=== PATIENT | male | born 1955 | race Caucasian/White ===

== ENCOUNTER → 2017-06-18 | Outpatient (CLI) | payer MEDICAID, MEDICARE ==
--- NOTE | 2017-06-18 12:20 | XR ---
EXAMINATION TYPE: XR finger RT DATE OF EXAM: 06/18/2017 COMPARISON: Bilateral hand x-ray February 23, 2015 HISTORY: Thumb pain and swelling. Injury 6-8 months ago. TECHNIQUE: 2 views of right thumb are obtained. FINDINGS: There is spurring and disc space narrowing at first metacarpophalangeal and first interphal angeal joint redemonstrated. On current study there is new 2 mm well-corticated ossific fragment, fr om the dorsal aspect of the first distal phalanx felt to reflect avulsion type fracture probably rela dash to injury 6-8 months ago. Linear soft tissue foreign body near base of second metacarpal remains present along dorsal surface. IMPRESSION: Suspect tiny 2 mm avulsion type fracture from the dorsal base of first distal phalanx at time of injury 6-8 months ago. (Initial encounter closed type post traumatic fracture)
== END | disposition home or self-care (01) ==
LOC: RADXRYALE 11:49
PROVIDERS: ATTEND Nurse Practitioner
DX: M79.644 Pain in right finger(s) (principal)

== ENCOUNTER → 2020-09-05 | Outpatient (CLI) | payer MEDICAID, MEDICARE ==
--- NOTE | 2020-09-05 11:06 | XR ---
EXAMINATION TYPE: XR knee complete LT DATE OF EXAM: 09/05/2020 CLINICAL HISTORY: Pain after falling injury 2 days ago. TECHNIQUE: Three views of the left knee are obtained. COMPARISON: None. FINDINGS: There is no acute fracture/dislocation evident in left knee. Metallic hardware from total left knee arthroplasty is satisfactory in position. Small spur from anterior superior patella. Cortic al thickening posterior tibial proximal diaphysis. The overlying soft tissue appears unremarkable. IMPRESSION: There is no acute fracture or dislocation in the left knee.
== END | disposition home or self-care (01) ==
LOC: RADXRYALE 10:39
PROVIDERS: ATTEND Orthopaedic Surgery
DX: M25.562 Pain in left knee (principal)